=== PATIENT | female | born 1985 | race American Indian/Alaskan Native ===

== ENCOUNTER 2017-03-27 05:59 | Emergency (ER) | payer SELFPAY ==
[2017-03-27 06:11] VITALS: BP 130/80
--- NOTE | 2017-03-27 07:32 | Emergency Department Report ---
ED Rash HPI - HPI Chief Complaint: Skin Rash Stated Complaint: SCABIES Time Seen by Provider: 03/27/17 07:18 Rash Symptoms: Yes Itching, No Facial Swelling, No Tongue/Oral Swelling, No Breathing Difficulties, No Choking Sensation, No Wheezing/Dyspnea, No Peeling, No Blistering, No Fever, No Lightheaded, No Malaise, No Myalgias Severity: mild Other History: 32F PMH none p/w c/o itchy skin. Patient states that the hotel where she is staying has a known issue with scabies. Has had itchy skin for approximately 1 week. Patient is accompanied by partner who also has same symptoms. Denies fevers or chills. Itchy reddish plaques on the skin near skin folds ED Review of Systems ROS: Stated complaint: SCABIES Other details as noted in HPI Constitutional: denies: chills, fever Eyes: denies: eye pain, eye discharge, vision change ENT: denies: ear pain, throat pain Respiratory: denies: cough, shortness of breath, wheezing Cardiovascular: denies: chest pain, palpitations Endocrine: no symptoms reported Gastrointestinal: denies: abdominal pain, nausea, diarrhea Genitourinary: denies: urgency, dysuria, discharge Musculoskeletal: denies: back pain, joint swelling, arthralgia Skin: pruritus. denies: rash, lesions Neurological: denies: headache, weakness, paresthesias Psychiatric: denies: anxiety, depression Hematological/Lymphatic: denies: easy bleeding, easy bruising ED Past Medical Hx - Past Medical History Hx Hypertension: No Hx Heart Attack/AMI: No Hx Congestive Heart Failure: No Hx Diabetes: No Hx Deep Vein Thrombosis: No Hx Pulmonary Embolism: No Hx Liver Disease: No Hx Renal Disease: No Hx Sickle Cell Disease: No Hx Arthritis: No Hx Seizures: No Hx Kidney Stones: No Hx Asthma: No Hx COPD: No Hx Tuberculosis: No Hx Dementia: No Hx HIV: No Additional medical history: . uterine infection - Surgical History Hx Coronary Stent: No Hx Pacemaker: No Hx Internal Defibrillator: No Additional Surgical History: section 3, most recently 07/24/2014 - Social History Smoking Status: Current Every Day Smoker Substance Use Type: None - Medications Home Medications: Home Medications Medication Instructions Recorded Confirmed Last Taken Type Amoxicillin [Amoxicillin TAB] 875 mg PO BID #14 tablet 09/08/14 03/31/16 Unknown Rx Atarax 1 tab PO DAILY 03/31/16 03/31/16 1 Day Ago History ~03/30/16 Ferrous Sulfate [Feosol 325 MG tab] 325 mg PO BID #60 tablet 03/31/16 Unknown Rx Ferrous Sulfate [Ferrous Sulfate] 1 tab PO DAILY 03/31/16 03/31/16 1 Day Ago History ~03/30/16 HYDROcodone/APAP 5-325 [[place] 1 each PO Q6HR PRN #30 tablet 03/31/16 Unknown Rx 5/325] Ibuprofen [Motrin] 800 mg PO Q8HR PRN #30 tablet 03/31/16 Unknown Rx Vit Calc,Iron,Folic 1 each PO DAILY #30 tablet 03/31/16 Unknown Rx [ Vitamins] Vits96/Iron Fum/Folic 1 tab PO DAILY 03/31/16 03/31/16 1 Day Ago History [ Tablet] ~03/30/16 Sertraline HCl [Sertraline HCl] 1 tab PO DAILY 03/31/16 03/31/16 1 Day Ago History ~03/30/16 Permethrin 5% [Acticin 5% CREAM] 1 applic TP ONCE #1 tube 03/27/17 Unknown Rx Rash Exam - Exam General: Vital signs noted. No distress. Alert and acting appropriately. HEENT: No Periorbital Edema, No Conjuctival Injection, No Chemosis, No Perioral Edema, No Tongue Edema, No Uvular Edema, No Compromised Airway, No Drooling Lungs: Yes Good Air Exchange (Normal Breath Sounds), No Wheezes, No Ronchi, No Stridor, No Cough, No Labored Respirations, No Retractions, No Use of Accessory Muscles, No Other Abnormal Lung Sounds Heart: Yes Regular, No Murmur Skin: Yes Maculopapular Rash, No Urticarial Rash, No Morbilliform rash, No Bulla (e), No Excoriations (excoriations on forearms and abdomen), No Weeping, No Tenderness, No Erythema, No Edema, No Encrustations, No Other Other: Positive: Abdomen Normal, Neurologic Normal, Musculoskeletal Normal ED Course Vital Signs 03/27/17 06:07 Temperature 97.9 F Pulse Rate 97 H Respiratory 18 Rate Blood Pressure 130/80 O2 Sat by Pulse 98 Oximetry ED Medical Decision Making - Medical Decision Making A/P: Scabies 1-permethrin cream 4-jugw-dia-counter Benadryl and hydrocortisone Critical care attestation.: If time is entered above; I have spent that time in minutes in the direct care of this critically ill patient, excluding procedure time. ED Disposition Clinical Impression: Scabies Disposition: DC-01 TO HOME OR SELFCARE Is pt being admited?: No Does the pt Need Aspirin: No Condition: Stable Instructions: Scabies (ED), Itchy Skin (ED) Prescriptions: Permethrin 5% [Acticin 5% CREAM] 1 applic TP ONCE #1 tube Referrals: PRIMARY CARE,MD [Primary Care Provider] - 3-5 Days Time of Disposition: 07:30
[2017-03-27] MEDS ORDERED: ACTICIN TP ONE (08:00)
== END 2017-03-27 07:50 | disposition home or self-care (01) ==
LOC: ED 05:59
DX: B86 Scabies (principal)
CPT/HCPCS: 99282